=== PATIENT | male | born 1990 | race African-American/Black ===

== ENCOUNTER 2017-12-30 06:45 | Observation (INO) | payer MEDICAID ==
[2017-12-30] MEDS ORDERED: CEFAZOLIN 1 GM INJ (07:00)
[2017-12-30] MEDS ORDERED: FLUMAZENIL 0.5 MG INJ (07:00)
[2017-12-30 08:08] LABS: ADD MAN DIFF? NO
[2017-12-30 08:20] LABS: ABNORMAL IP MESSAGE 1; BASOPHILS % 0.4 % (0.0-2.0); EOSINOPHILS # 0.1 10^3/ul (0.0-0.5); EOSINOPHILS % 2.1 % (0.0-7.0); HEMATOCRIT 43.6 % (42.0-52.0); HEMOGLOBIN 14.1 g/dl (14.0-18.0); LYMPHOCYTES # 0.9 10^3/ul (0.8-2.9); LYMPHOCYTES % 37.8 % (15.0-51.0); MEAN CORPUSCULAR HEMOGLOBIN 29.6 pg (29.0-33.0); MEAN CORPUSCULAR HGB CONC 32.3 g/dl (32.0-37.0); MEAN CORPUSCULAR VOLUME 91.4 fl (82.0-101.0); MEAN PLATELET VOLUME 9.8 fl (7.4-10.4); MONOCYTE # 0.4 10^3/ul (0.3-0.9); MONOCYTES % 18.5 % (0.0-11.0); NEUTROPHILS % 40.8 % (39.0-77.0); PLATELET COUNT 204 10^3/UL (140-415); POSITIVE DIFF @See below; RED BLOOD COUNT 4.77 10^6/ul (4.70-6.10); RED CELL DISTRIBUTION WIDTH 12.2 % (11.5-14.5)
[2017-12-30 08:20] LABS: WHITE BLOOD COUNT 2.3 10^3/ul (4.8-10.8)
[2017-12-30 08:32] LABS: PROTIME 13.3 Sec (11.9-14.9)
[2017-12-30 08:33] LABS: HOLD TRANSMISSIONS 1; PARTIAL THROMBOPLASTIN TIME 30.3 Sec (25.0-35.0)
[2017-12-30 08:36] LABS: CHOLESTEROL 110 mg/dl (100-200)
[2017-12-30 08:36] LABS: CHOL/HDL RATIO 2.3 RATIO; HDL CHOLESTEROL 47 mg/dl (30-63); LDL CHOLESTEROL,CALCULATED 40 mg/dl; TRIGLYCERIDES 117 mg/dl (0-149)
[2017-12-30] MEDS ORDERED: ROCURONIUM 50 MG INJ (10:05)
[2017-12-30] MEDS ORDERED: MIDAZOLAM 1 MG/ML 2 ML INJ (10:05)
[2017-12-30] MEDS ORDERED: LIDOCAINE 2% (SDV) 5 ML INJ (10:05)
[2017-12-30] MEDS ORDERED: GLYCOPYRROLATE 0.4 MG INJ (10:05)
[2017-12-30] MEDS ORDERED: NEOSTIGMINE 3 MG/3 ML SYRINGE (10:05)
[2017-12-30] MEDS ORDERED: PROPOFOL 20 ML (10:05)
[2017-12-30] MEDS ORDERED: DEXAMETHASONE 4 MG/ML 1 ML INJ (10:06)
[2017-12-30] MEDS ORDERED: FENTAnyl 50 MCG/ML VIAL (10:06)
[2017-12-30] MEDS ORDERED: ONDANSETRON 4 MG INJ (10:06)
[2017-12-30] MEDS ORDERED: POLYMYXIN/BACITRACIN 1L IRRIG (10:19)
[2017-12-30] MEDS: LIDOCAINE 1% (MPF) 30 ML INJ (11:14)
[2017-12-30] MEDS: BUPIVACAINE 0.25% (MPF) 30 ML INJ (11:14)
[2017-12-30] MEDS: CEFAZOLIN 1 GM/50 ML (PMX) 50 ML IVPB ×2 (12:30→17:33)
[2017-12-30] MEDS ORDERED: morphine 2 MG INJ IV (12:30)
[2017-12-30] MEDS ORDERED: ACETAMINOPHEN 325 MG TAB PO (12:30)
[2017-12-30] MEDS ORDERED: DIPHENHYDRAMINE 50 MG INJ IV (13:00)
[2017-12-30] MEDS ORDERED: MEPERIDINE 25 MG INJ IV (13:00)
[2017-12-30] MEDS ORDERED: HYDROmorphONE 1 MG/5 ML IV SYRINGE IV ×3 (13:00)
[2017-12-30] MEDS ORDERED: OXYCODONE/ACETAMINOPHEN (5/325) TAB PO (13:00)
[2017-12-30] MEDS ORDERED: FENTAnyl 50 MCG/ML VIAL IV (13:00)
[2017-12-30] MEDS ORDERED: ONDANSETRON 4 MG INJ IV (13:00)
[2017-12-30 13:14] LABS: ANION GAP 11 (8-16); BLOOD UREA NITROGEN 16 mg/dl (7-20); CALCIUM 9.1 mg/dl (8.4-10.2); CARBON DIOXIDE 26 mmol/L (21-31); CHLORIDE 109 mmol/L (97-110); CREATININE 1.03 mg/dl (0.61-1.24); GLUCOSE 77 mg/dl (70-220); SODIUM 142 mmol/L (135-144)
[2017-12-30] MEDS ORDERED: NACL 0.9% 3 ML SYG IV (16:30)
[2017-12-30] MEDS ORDERED: HYDROCODONE/APAP (5/325) TAB PO (16:30)
[2017-12-30] MEDS ORDERED: HYDROmorphONE 0.5 MG/0.5 ML SYG IV (16:30)
[2017-12-30] MEDS ORDERED: CEFAZOLIN 1 GM INJ IV (18:00)
[2017-12-31] MEDS: CEFAZOLIN 1 GM/50 ML (PMX) 50 ML IVPB ×3 (00:45→11:52)
[2017-12-31 08:57] LABS: HEMOGLOBIN A1C 5.1 % (0-5.9)
== END 2017-12-31 13:58 | disposition home or self-care (01) ==
LOC: SDS 06:45 → REC 12:01 → TEL 14:20
PROVIDERS: Internal Medicine Clinical Cardiac Electrophysiology
DX: Z45.02 Encounter for adjustment and management of automatic implantable cardiac defibrillator (principal); I42.9 Cardiomyopathy, unspecified; I47.2 Ventricular tachycardia
CPT/HCPCS: 33263; 71045; 80048; 80061; 83036; 85025; 85610; 85730; 88300; 93005; G0378